=== PATIENT | female | born 1955 ===

== ENCOUNTER 2023-05-26 06:30 | Day surgery (SDC) | payer MEDICARE, SELFPAY ==
[2023-05-26 07:15] VITALS: BP 141/69; PULSE 88; RESP 18; TEMP 36.5; O2SAT 98
--- NOTE | 2023-05-26 07:15 | W.ANESPRE ---
General Info Date of Service Date Performed: 05/26/23 Height: 5 ft 3 in Weight: 58.967 kg Body Mass Index (BMI): 23.0 Surgical Procedure: Operation Date: 05/26/23 07:40 Proposed Procedure Side Surgeon p Cataract Extraction with IOL Implant Left Jeffry Lynn MD Meds Allergies and Home Medications Allergies Allergy/AdvReac Type Severity Reaction Status Date / Time atorvastatin Allergy Intermediate hair falls Verified 05/26/23 07:05 out metformin AdvReac Intermediate Diarrhea Verified 05/26/23 07:05 seasonal allergies Allergy Unknown Uncoded 05/26/23 07:05 Home Medication Medication Instructions Recorded albuterol sulfate 90 mcg/actuation 2 inh inhalation Q6H PRN 05/23/23 aerosol inhaler aspirin 81 mg chewable tablet 81 mg PO DAILY 05/23/23 budesonide 3 mg 3 mg PO DAILY 05/23/23 capsule,delayed,extended release budesonide-formoterol HFA 160 2 inh inhalation BID 05/23/23 mcg-4.5 mcg/actuation aerosol inhaler (Breyna) cholecalciferol (vitamin D3) 10 10 mcg PO DAILY 05/23/23 mcg (400 unit) capsule (Vitamin D3) glimepiride 2 mg tablet 2 mg PO DAILY 05/23/23 lisinopril 10 mg tablet 10 mg PO DAILY 05/23/23 loperamide 2 mg tablet 2 mg PO Q6H PRN 05/23/23 (Anti-Diarrheal (loperamide)) multivitamin (One Daily 1 tab PO DAILY 05/23/23 Multivitamin tablet) rosuvastatin 5 mg tablet 5 mg PO DAILY 05/23/23 semaglutide 3 mg tablet (Rybelsus) 3 mg PO DAILY 05/23/23 Current Visit Medications: Current Medications Generic Name Dose Route Start Last Admin Trade Name Freq PRN Reason Stop Dose Admin Acetaminophen 1,000 mg 05/26/23 06:00 Acetaminophen 500 Mg Tab PO 06/25/23 05:59 Q4H PRN PRN Balanced Salt Solution 500 ml 05/26/23 06:00 Balanced Salt Soln.-Plus 500 Ml Bag OP 06/25/23 05:59 DIRECTED [facility] Miscellaneous Medication 0 ml 05/26/23 06:00 Prednisolone 1%, Moxifloxacin 0.5%, Bromfenac 0.09% 5ml Btl OS 06/25/23 05:59 DIRECTED [facility] Miscellaneous Medication 0 ml 05/26/23 06:00 05/26/23 07:13 Tropicam./Phenyleph. (1/2.5%) 10 Ml Btl OS 06/25/23 05:59 1 drp DIRECTED [facility] Administration Tetracaine HCl 0 ml 05/26/23 06:00 Tetracaine 0.5% 4 Ml Btl OS 06/25/23 05:59 DIRECTED [facility] PFSH Active Problems Active Problems: Problem Status Onset Code Cortical age-related cataract, left eye H25.012 Nuclear age-related cataract, left eye H25.12 Medical History Medical History (Updated 05/25/23 @ 11:03 by Bridger Cruz) Mild atherosclerosis of left carotid artery Per pt. states she has never heard that she had this . Rhinitis Vertigo Hyperlipidemia Celiac disease Anxiety and depression Osteoarthritis Hypertension Diabetes COPD (chronic obstructive pulmonary disease) Diarrhea Collagenous colitis Smoker Bronchitis Atopic dermatitis Left hand pain Skin lesion of back Neoplasm of uncertain behavior Seborrheic keratoses inflamed seborrheic keratosis Angioma Surgical History Surgical History History of tubal ligation History of endoscopy History of colonoscopy History of biopsy right forearm Tobacco Smoking/Tobacco Use Status: Current every day Tobacco Type: cigarettes Alcohol Alcohol Intake: never Substance Use Substance use: Never Substance use type: does not use Vital Signs and Lab Results Point of Care Results Point of Care Results: Finger Stick Blood Glucose 171 05/26/23 06:59 Lab Results Blood Type / Crossmatch: No Data to Display Complete Blood Count: No Data to Display Complete Metabolic Panel: No Data to Display Liver Function Panel: No Data to Display Coagulation Panel: No Data to Display Cardiac Panel: No Data to Display Arterial Blood Gas: No Data to Display Venous Blood Gas: No Data to Display Pancreas Panel: No Data to Display Thyroid Panel: No Data to Display Infectious Disease: No Data to Display Blood Cultures: No Data to Display Toxicology Panel: No Data to Display Anesthesia Assessment and Plan Anesthesia History Personal History: No History of Anesthesia Complications Family History: No Family History of Anesthesia Complications Exercise Tolerance Exercise Tolerance: Metabolic Equivalents>4 Pertinent Negatives Pertinent Negatives: No Symptoms of GERD Cardiac & Pulmonary Exam Cardiac Exam: Normal S1/S2 Heart Sounds Pulmonary Exam: Clear Bilateral Breath Sounds Implantable Cardiac Device Does patient have a Pacemaker or an ICD?: No Airway Exam Known Difficult Airway: No Mallampati Class: 2 Mouth Opening: Normal (> 3cm) Thyromental Distance: Greater than 3 cm Neck Range of Motion: Full ROM Neck Circumference: Normal Teeth Condition: Normal Dentition ASA Classification ASA Score: ASA 3 Emergency Case?: No NPO Status NPO Status: NPO Clears >2 hours, Solids >8 hours Anesthesia Plan Resuscitation Status: Full Code Anesthesia Technique: MAC Anesthesia Airway Planned: Natural Airway Monitors Used: Standard Monitors
[2023-05-26 07:16] VITALS: BMI 23.0
[2023-05-26] MEDS: Lidocaine 1% Pres-Free 5 ML VIAL (07:44)
[2023-05-26] MEDS: Trypan Blue 0.06% 0.5 ML SYR (07:48)
[2023-05-26] MEDS: Povidone-Iodine Ophth 30 ML BTL (07:48)
[2023-05-26] MEDS: Balanced Salt Soln.-PLUS 500 ML BAG OP (07:49)
[2023-05-26] MEDS: Duovisc Viscoelastic System EACH 1 EACH (07:49)
[2023-05-26] MEDS: Tetracaine 0.5% 4 ML BTL OS (07:50)
[2023-05-26 08:07] VITALS: BP 134/67; PULSE 75; RESP 16; TEMP 36.5; O2SAT 99
--- NOTE | 2023-05-26 08:07 | W.PM.DSUDISC ---
Date of service: 05/26/23 Time of Service: 08:07 Discharge Plan Disposition Patient Disposition: Home Discharge Details Attending Provider: Jeffry Lynn Primary Care Provider: Bianca Abreu Home Meds and New Rx's Prescriptions: No Action budesonide 3 mg capsule,delayed,extend.release 3 mg PO DAILY Patient Comments: TAKE 1 CAPSULE BY MOUTH DAILY budesonide-formoterol [Breyna] 160-4.5 mcg/actuation HFA aerosol inhaler 2 inh inhalation BID Patient Comments: 05/26/23 pt reports doesnt use as to expensive Lula CHILDS multivitamin [One Daily Multivitamin] Tablet 1 tab PO DAILY loperamide [Anti-Diarrheal (loperamide)] 2 mg tablet 2 mg PO Q6H PRN glimepiride 2 mg tablet 2 mg PO DAILY albuterol sulfate 90 mcg/actuation HFA aerosol inhaler 2 inh INHALATION Q6H PRN rosuvastatin 5 mg tablet 5 mg PO DAILY Patient Comments: TAKE 1 TABLET BY MOUTH DAILY lisinopril 10 mg tablet 10 mg PO DAILY Patient Comments: TAKE 1 TABLET BY MOUTH DAILY aspirin 81 mg tablet,chewable 81 mg PO DAILY cholecalciferol (vitamin D3) [Vitamin D3] 10 mcg (400 unit) capsule 10 mcg PO DAILY Rybelsus 3 mg tablet 3 mg PO DAILY Patient Comments: TAKE 1 TABLET BY MOUTH DAILY Discharge Instructions Stand Alone Forms: DSU Post-Op CataractElana (DSU) Discharge Orders Discharge Orders: Discharge Order (Routine); Ordered 05/26/23 Ordered By: Jeffry Lynn DS: Diagnosis Discharge Diagnosis (1) Cortical age-related cataract, left eye: Status: Resolved (2) Nuclear age-related cataract, left eye: Status: Resolved
--- NOTE | 2023-05-26 08:08 | ROE_ITS ---
Date of service: 05/26/23 Time of Service: 08:08 Operative Note Operative Note DATE OF PROCEDURE: 05/26/23 PRE-OP DIAGNOSIS: Dense nuclear/cortical cataract, left eye POST-OP DIAGNOSIS: same PROCEDURE: Cataract extraction using phacoemulsification with intraocular lens implant, left eye SURGEON: Jeffry Lynn ANESTHESIA TYPE: Local By Surgeon and MAC Refer to Anesthesia Record PATHOLOGY: none sent COMPLICATIONS: None Patient was transported to: same day Patient's condition: stable Implants: Chad Clareon [id number] Indications: Progressive decreased vision due to cataract, left eye Procedure Description: CATARACT SURGERY OPERATIVE REPORT PREOPERATIVE DIAGNOSIS: Dense nuclear/cortical cataract, left eye POSTOPERATIVE DIAGNOSIS: Same OPERATION: Cataract extraction using phacoemulsification with posterior chamber intraocular lens implant, left eye. IOL: IOL Salesperson Driver/Model: Chad Clareon [id number] IOL Power: + 20.5 diopters IOL Serial Number: [id number] Optic Diameter: 6.0mm Haptic/Overall Diameter: 13.0mm PHACO INFO: ChadInSync Softwareurion Vision System with OZil and Active Fluidics Cumulative Dispersed Energy (CDE): 15.82 seconds SURGEON: Jeffry Lynn MD, BRODERICK ANESTHESIA: Monitored Anesthesia Care (MAC), with local sub-tenon's anesthetic infiltration COMPLICATIONS: None SPECIMENS: None INDICATIONS FOR PROCEDURE: The patient is a 68-year-old lady with history of diminished visual acuity in her left eye secondary to the development of significant nuclear/cortical cataract. She is significantly symptomatic that she desires cataract surgery and attempt to improve and maximize her vision. See office notes for detailed information. PROCEDURE: The correct surgical eye was identified and marked as the left eye and the pupil was dilated in the preoperative area using mydriatics and cyc loplegics. The dilated pupil size was 4.5 mm. The patient elected to proceed without oral sedation. The patient was brought to the operating room where cardiopulmonary monitoring was instituted and surgical time-out was performed, confirming the correct operative eye and IOL power. Topical anesthesia was administered and ophthalmic povidone-iodine 5% was instilled into the conjunctival fornices. The shala-ocular area was prepped with Betadine 10% solution and draped in the usual sterile fashion for intraocular surgery, including an aperture drape. A Tegaderm transparent film dressing was cut in half and used to cover the lashes and lid margins. Care was taken to sequester the lashes and lid margins under the Tegaderm dressing. A lid speculum was placed between the lids of the operative eye and the Chad LuxOR Revalia operating microscope was maneuvered into position. The red reflex was noted to be absent due to dense nuclear and cortical cataract. Flavia scissors were then used to make a conjunctival buttonhole approximately 6mm posterior to the limbus in the inferonasal quadrant. Blunt dissection was carried out to expose bare sclera, and a blunt-tipped sub-tenon?s anesthesia cannula was introduced and passed posteriorly along the globe where non- preserved plain lidocaine was injected into posterior sub-Tenon?s space. A sideport knife was used to make a paracentesis port. VisionBlue was injected into the anterior chamber and allowed to sit for 30 seconds. Intraocular phenylephrine/lidocaine was injected into the anterior chamber. The anterior chamber was then filled with viscoelastic. Viscoat was used to Viscoat dilate the pupil, achieving a pupil size of approximately 5 mm. A keratome knife was used construct a two-plane clear corneal tunnel extending 2.0mm into clear cornea. A flap was raised on the anterior capsule and capsulorhexis forceps were used to complete a continuous curvilinear capsulorhexis of 5.0 mm. The capsule was noted to be quite thin. Balanced salt solution was then used to perform cortical cleaving hydrodissection and nuclear hydrodelineation until the lens could be freely rotated within the capsular bag. The lens nucleus was then disassembled and removed within the capsular bag and iris plane using phacoemulsification. Additional Viscoat was injected during phacoemulsification to protect the corneal endothelium. Residual cortical material was removed using the irrigation/aspiration handpiece. The posterior capsule was carefully polished to remove as much residual lens epithelial cells as safely possible. The capsular bag was then inflated and the anterior chamber deepened with viscoelastic. The lens implant described above was inserted into the capsular bag using the Chad Autonome Injector. A Kuglen hook was used to dial the IOL into position. Residual viscoelastic was then removed first from posterior to the IOL, then from the anterior chamber using the I/A handpiece. The lens implant was noted to center nicely within the capsular bag. The incisions were stromally hydrated, and the anterior chamber was reformed using BSS. Then 0.5cc of moxifloxacin 1.0mg/ml were injected into the capsular bag and anterior chamber. The incisions were checked with a Weck spear and found to be secure. Several drops of ophthalmic povidone-iodine 5% were then applied to the eye followed by two drops of combination steroid/NSAID/antibiotic solution. The drapes were removed and a clear plastic protective eye shield was placed over the eye. The patient was then returned to Same Day Surgery in stable condition.
--- NOTE | 2023-05-26 08:12 | W.ANESPOSTOP ---
Postoperative Evaluation Date, Time and Location Date Performed: 05/26/23 Time Performed: 08:12 Patient Location: Day Surgery Unit Vital Signs Most Recent Imported Vital Signs: Most Recent Vital Signs Temp Pulse Resp BP Pulse Ox 36.5 C 88 18 141/69 H 98 05/26/23 07:15 05/26/23 07:15 05/26/23 07:15 05/26/23 07:15 05/26/23 07:15 Pain Score Most Recent Pain Score: Most Recent Pain Score Pain Level 0 05/26/23 07:15 Assessment Mental Status: Awake (Alert & Oriented to Patient Baseline) Airway and Respiratory Function: Patent airway with normal (patient baseline) respiratory exam Cardiovascular Function: Hemodynamically Stable Hydration Status: Adequately Hydrated Nausea & Vomiting: No Nausea or Vomiting Pain: Pt. Denies Any Pain Peripheral Nerve Block: Patient did not receive a nerve block
== END 2023-05-26 08:33 | disposition home or self-care (01) ==
LOC: SUR 09:48
PROVIDERS: PCP Family Medicine; Visit Provider Ophthalmology
PROC: (CPT 66984; principal; 2023-05-26 07:30)
DX: H25.012 Cortical age-related cataract, left eye (principal); H25.12 Age-related nuclear cataract, left eye
CPT/HCPCS: 66984; 00123; V2632; J2003

== ENCOUNTER 2023-06-09 06:07 | Day surgery (SDC) | payer MEDICARE, SELFPAY ==
[2023-06-09 06:30] VITALS: BP 106/61; PULSE 80; RESP 16; TEMP 36.4; O2SAT 98
--- NOTE | 2023-06-09 07:08 | W.PREOPHP ---
Assessment and Plan Assessment and plan (1) Cortical age-related cataract, right eye: Status: Acute Assessment and plan: Assessment: Visually significant cataract of the right eye. Plan: Cataract extraction with lens implantation of the right eye. (2) Nuclear age-related cataract, right eye: Status: Acute Assessment and plan: Assessment: Visually significant cataract of the right eye. Plan: Cataract extraction with lens implantation of the right eye. History of Present Illness History of Present Illness Chief Complaint: Progressive decreased vision, right eye Narrative: The patient is a 67-year-old lady with history of progressive decreased vision in both eyes at both distance and near. She notes significant difficulty with glare. On examination she was noted to have bilateral nuclear/cortical cataract and underwent cataract surgery in the left eye on 05/26/2023. She is doing well postoperatively. And she now presents for cataract surgery of the right eye. Review of Systems All systems reviewed & are unremarkable except as noted in HPI and below PFSH All Active Problems Cortical age-related cataract, right eye (Acute) Nuclear age-related cataract, right eye (Acute) Medical History Mild atherosclerosis of left carotid artery Per pt. states she has never heard that she had this . Rhinitis Vertigo Hyperlipidemia Celiac disease Anxiety and depression Osteoarthritis Hypertension Diabetes COPD (chronic obstructive pulmonary disease) Diarrhea Collagenous colitis Smoker Bronchitis Atopic dermatitis Left hand pain Skin lesion of back Neoplasm of uncertain behavior Seborrheic keratoses inflamed seborrheic keratosis Angioma Surgical History History of tubal ligation History of endoscopy History of colonoscopy History of biopsy right forearm Family History Other Cancer Diabetes Heart disease Social History Smoking/Tobacco Use Status: Current every day Tobacco Type: cigarettes Years smoked: 29 Tobacco: How many years used: 29 Smoking risk assessment performed?: Yes Alcohol Intake: never Drug use: Never Substance use type: does not use Housing: house Do you feel safe at home: Yes Do you feel safe in your relationship?: Yes Meds Allergies and Home Medications Allergies Allergy/AdvReac Type Severity Reaction Status Date / Time atorvastatin Allergy Intermediate hair falls Verified 06/09/23 06:35 out metformin AdvReac Intermediate Diarrhea Verified 06/09/23 06:35 seasonal allergies Allergy Unknown Uncoded 06/09/23 06:35 Home Medications Medication Instructions Recorded Confirmed Type albuterol sulfate 90 mcg/actuation 2 inh inhalation Q6H PRN 05/23/23 06/09/23 History aerosol inhaler aspirin 81 mg chewable tablet 81 mg PO DAILY 05/23/23 06/09/23 History budesonide 3 mg 3 mg PO DAILY 05/23/23 06/09/23 History capsule,delayed,extended release budesonide-formoterol HFA 160 2 inh inhalation BID 05/23/23 06/09/23 History mcg-4.5 mcg/actuation aerosol inhaler (Breyna) cholecalciferol (vitamin D3) 10 10 mcg PO DAILY 05/23/23 06/09/23 History mcg (400 unit) capsule (Vitamin D3) glimepiride 2 mg tablet 2 mg PO DAILY 05/23/23 06/09/23 History lisinopril 10 mg tablet 10 mg PO DAILY 05/23/23 06/09/23 History loperamide 2 mg tablet 2 mg PO Q6H PRN 05/23/23 06/09/23 History (Anti-Diarrheal (loperamide)) multivitamin (One Daily 1 tab PO DAILY 05/23/23 06/09/23 History Multivitamin tablet) rosuvastatin 5 mg tablet 5 mg PO DAILY 05/23/23 06/09/23 History semaglutide 3 mg tablet (Rybelsus) 3 mg PO DAILY 05/23/23 06/09/23 History Exam Eyes Other: Most recent ocular examination is significant for corrected visual acuity of 20/40 in each eye. Extract motility is normal. Intraocular pressure is 17 OD, 22 OS. Slit-lamp examination shows moderate nuclear cataract with mild cortical cataract in the right eye. In the left eye there is a well-positioned PCIOL with clear posterior capsule. Endothelial changes are noted in both corneas. Funduscopic examination shows disc cupping of 0.4 OU with normal vessels, macula, peripheral retina and vitreous. Resp Auscultation: clear to auscultation bilaterally Cardio Rate: regular rate Rhythm: regular rhythm Results Last Vital Signs Temp 36.4 C L 06/09/23 06:30 Pulse 80 06/09/23 06:30 Resp 16 06/09/23 06:30 BP 106/61 06/09/23 06:30 Pulse Ox 98 06/09/23 06:30
--- NOTE | 2023-06-09 07:13 | ANES.PREOP_ITS ---
General Info Date of Service Date Performed: 06/09/23 Height: 5 ft 3 in Weight: 56.2 kg Body Mass Index (BMI): 21.9 Surgical Procedure: Operation Date: 06/09/23 07:40 Proposed Procedure Side Surgeon p Cataract Extraction with IOL Implant Right Jeffry Lynn MD Meds Allergies and Home Medications Allergies Allergy/AdvReac Type Severity Reaction Status Date / Time atorvastatin Allergy Intermediate hair falls Verified 06/09/23 06:35 out metformin AdvReac Intermediate Diarrhea Verified 06/09/23 06:35 seasonal allergies Allergy Unknown Uncoded 06/09/23 06:35 Home Medication Medication Instructions Recorded albuterol sulfate 90 mcg/actuation 2 inh inhalation Q6H PRN 05/23/23 aerosol inhaler aspirin 81 mg chewable tablet 81 mg PO DAILY 05/23/23 budesonide 3 mg 3 mg PO DAILY 05/23/23 capsule,delayed,extended release budesonide-formoterol HFA 160 2 inh inhalation BID 05/23/23 mcg-4.5 mcg/actuation aerosol inhaler (Breyna) cholecalciferol (vitamin D3) 10 10 mcg PO DAILY 05/23/23 mcg (400 unit) capsule (Vitamin D3) glimepiride 2 mg tablet 2 mg PO DAILY 05/23/23 lisinopril 10 mg tablet 10 mg PO DAILY 05/23/23 loperamide 2 mg tablet 2 mg PO Q6H PRN 05/23/23 (Anti-Diarrheal (loperamide)) multivitamin (One Daily 1 tab PO DAILY 05/23/23 Multivitamin tablet) rosuvastatin 5 mg tablet 5 mg PO DAILY 05/23/23 semaglutide 3 mg tablet (Rybelsus) 3 mg PO DAILY 05/23/23 Current Visit Medications: Current Medications Generic Name Dose Route Start Last Admin Trade Name Freq PRN Reason Stop Dose Admin Acetaminophen 1,000 mg 06/09/23 06:00 Acetaminophen 500 Mg Tab PO 07/09/23 05:59 Q4H PRN PRN Balanced Salt Solution 500 ml 06/09/23 06:00 Balanced Salt Soln.-Plus 500 Ml Bag OP 07/09/23 05:59 DIRECTED [facility] Miscellaneous Medication 0 ml 06/09/23 06:00 Prednisolone 1%, Moxifloxacin 0.5%, Bromfenac 0.09% 5ml Btl OD 07/09/23 05:59 DIRECTED [facility] Miscellaneous Medication 0 ml 06/09/23 06:00 06/09/23 06:50 Tropicam./Phenyleph. (1/2.5%) 10 Ml Btl OD 07/09/23 05:59 1 drp DIRECTED [facility] Administration Tetracaine HCl 0 ml 06/09/23 06:00 Tetracaine 0.5% 4 Ml Btl OD 07/09/23 05:59 DIRECTED [facility] PFSH Active Problems Active Problems: Problem Status Onset Code Cortical age-related cataract, right eye H25.011 Nuclear age-related cataract, right eye H25.11 Cortical age-related cataract, left eye H25.012 Nuclear age-related cataract, left eye H25.12 Medical History Medical History Mild atherosclerosis of left carotid artery Per pt. states she has never heard that she had this . Rhinitis Vertigo Hyperlipidemia Celiac disease Anxiety and depression Osteoarthritis Hypertension Diabetes COPD (chronic obstructive pulmonary disease) Diarrhea Collagenous colitis Smoker Bronchitis Atopic dermatitis Left hand pain Skin lesion of back Neoplasm of uncertain behavior Seborrheic keratoses inflamed seborrheic keratosis Angioma Surgical History Surgical History History of tubal ligation History of endoscopy History of colonoscopy History of biopsy right forearm Tobacco Smoking/Tobacco Use Status: Current every day Tobacco Type: cigarettes Smoking cigarettes per day: 10 Years smoked: 29 Alcohol Alcohol Intake: never Substance Use Substance use: Never Substance use type: does not use Vital Signs and Lab Results Vital Signs Most Recent Vital Signs in EMR: Most Recent Vital Signs Temp Pulse Resp BP Pulse Ox 36.4 C L 80 16 106/61 98 06/09/23 06:30 06/09/23 06:30 06/09/23 06:30 06/09/23 06:30 06/09/23 06:30 Lab Results Blood Type / Crossmatch: No Data to Display Complete Blood Count: No Data to Display Complete Metabolic Panel: No Data to Display Liver Function Panel: No Data to Display Coagulation Panel: No Data to Display Cardiac Panel: No Data to Display Arterial Blood Gas: No Data to Display Venous Blood Gas: No Data to Display Pancreas Panel: No Data to Display Thyroid Panel: No Data to Display Infectious Disease: No Data to Display Blood Cultures: No Data to Display Toxicology Panel: No Data to Display Anesthesia Assessment and Plan Anesthesia History Personal History: No History of Anesthesia Complications Family History: No Family History of Anesthesia Complications Exercise Tolerance Exercise Tolerance: Metabolic Equivalents>4 Pertinent Negatives Pertinent Negatives: No Symptoms of GERD Cardiac & Pulmonary Exam Cardiac Exam: Normal S1/S2 Heart Sounds Pulmonary Exam: Clear Bilateral Breath Sounds Implantable Cardiac Device Does patient have a Pacemaker or an ICD?: No Airway Exam Known Difficult Airway: No Mallampati Class: 2 Mouth Opening: Normal (> 3cm) Thyromental Distance: Greater than 3 cm Neck Range of Motion: Full ROM Neck Circumference: Normal Teeth Condition: Removable Dentures/Plates Upper and Removable Dentures/Plates Lower ASA Classification ASA Score: ASA 3 Emergency Case?: No NPO Status NPO Status: NPO Clears >2 hours, Solids >8 hours Anesthesia Plan Resuscitation Status: Full Code Anesthesia Technique: MAC Anesthesia Airway Planned: Natural Airway Monitors Used: Standard Monitors
[2023-06-09 07:15] VITALS: BMI 21.9
[2023-06-09] MEDS: Povidone-Iodine Ophth 30 ML BTL (07:31)
[2023-06-09] MEDS: Tetracaine 0.5% 4 ML BTL OD (07:32)
[2023-06-09] MEDS: Balanced Salt Soln.-PLUS 500 ML BAG OP (07:39)
[2023-06-09] MEDS: Lidocaine 1% Pres-Free 5 ML VIAL (07:40)
[2023-06-09] MEDS: Trypan Blue 0.06% 0.5 ML SYR (07:40)
[2023-06-09] MEDS: Duovisc Viscoelastic System EACH 1 EACH (07:41)
[2023-06-09 08:07] VITALS: BP 121/51; PULSE 66; RESP 16; TEMP 36.2; O2SAT 99
--- NOTE | 2023-06-09 08:07 | ROE_ITS ---
Date of service: 06/09/23 Time of Service: 08:08 Operative Note Operative Note DATE OF PROCEDURE: 06/09/23 PRE-OP DIAGNOSIS: Nuclear/cortical cataract, right eye POST-OP DIAGNOSIS: same PROCEDURE: Cataract extraction using phacoemulsification with intraocular lens implant, right eye SURGEON: Jeffry Lynn ANESTHESIA TYPE: Local By Surgeon and MAC Refer to Anesthesia Record ESTIMATED BLOOD LOSS: 0 PATHOLOGY: none sent COMPLICATIONS: None Patient was transported to: same day Patient's condition: stable Implants: Chad Clareon [id number] Indications: Progressive decreased vision due to cataract, right eye Procedure Description: CATARACT SURGERY OPERATIVE REPORT PREOPERATIVE DIAGNOSIS: Nuclear/cortical cataract, right eye POSTOPERATIVE DIAGNOSIS: Same OPERATION: Cataract extraction using phacoemulsification with posterior chamber intraocular lens implant, right eye. IOL: IOL Torch Burner/Model: Chad Clareon [id number] IOL Power: + 20.5 diopters IOL Serial Number: [id number] Optic Diameter: 6.0mm Haptic/Overall Diameter: 13.0mm PHACO INFO: [employer] Vision System with OZil and Active Fluidics Cumulative Dispersed Energy (CDE): 15.68 seconds SURGEON: Jeffry Lynn MD, BRODERICK ANESTHESIA: Monitored Anesthesia Care (MAC), with local sub-tenon's anesthetic infiltration COMPLICATIONS: None SPECIMENS: None INDICATIONS FOR PROCEDURE: The patient is a 68-year-old lady with history of diminished visual acuity in both eyes secondary to the development of bilateral nuclear/cortical cataract. She has already undergone cataract surgery in the left eye and is doing well postoperatively. She now presents for cataract surgery in the right eye. See office notes for detailed information. PROCEDURE: The correct surgical eye was identified and marked as the right eye and the pupil was dilated in the preoperative area using mydriatics and cycloplegics. The dilated pupil size was 4.5 mm. The patient elected to proceed without oral sedation. The patient was brought to the operating room where cardiopulmonary monitoring was instituted and surgical time-out was performed, confirming the correct operative eye and IOL power. Topical anesthesia was administered and ophthalmic povidone-iodine 5% was instilled into the conjunctival fornices. The shala-ocular area was prepped with Betadine 10% solution and draped in the usual sterile fashion for intraocular surgery, including an aperture drape. A Tegaderm transparent film dressing was cut in half and used to cover the lashes and lid margins. Care was taken to sequester the lashes and lid margins under the Tegaderm dressing. A lid speculum was placed between the lids of the operative eye and the Sakshi-Maryjane operating microscope was maneuvered into position. Flavia scissors were then used to make a conjunctival buttonhole approximately 6mm posterior to the limbus in the inferonasal quadrant. Blunt dissection was carried out to expose bare sclera, and a blunt-tipped sub-tenon?s anesthesia cannula was introduced and passed posteriorly along the globe where non- preserved plain lidocaine was injected into posterior sub-Tenon?s space. A sideport knife was used to make a paracentesis port. VisionBlue was injected into the anterior chamber and allowed to sit for 20 seconds. Intraocular phenylephrine/lidocaine was injected into the anterior chamber. The anterior chamber was then filled with viscoelastic. An additional 0.5 mm of Viscoat dilation was achieved. A keratome knife was used to construct a two--plane clear corneal tunnel extending 2.0mm into clear cornea. A flap was raised on the anterior capsule and capsulorhexis forceps were used to complete a continuous curvilinear capsulorhexis of 4.5 mm. Balanced salt solution was then used to perform cortical cleaving hydrodissection and nuclear hydrodelineation until the lens could be freely rotated within the capsular bag. The lens nucleus was then disassembled and removed within the capsular bag and iris plane using phacoemulsification. Residual cortical material was removed using the I/A handpiece. The posterior capsule was carefully polished to remove as much residual lens epithelial cells as safely possible. The capsular bag was then inflated and the anterior chamber deepened with cohesive viscoelastic. The lens implant described above was inserted into the capsular bag using the Chad Autonome Injector. A Kuglen hook was used to dial the IOL into position. Residual viscoelastic was then removed first from posterior to the IOL, then from the anterior chamber using the I/A handpiece. The lens implant was noted to center nicely within the capsular bag. The incisions were stromally hydrated, and the anterior chamber was reformed using BSS. Then 0.5cc of moxifloxacin 1.0mg/ml were injected into the capsular bag and anterior chamber. The incisions were checked with a Weck spear and found to be secure. Several drops of ophthalmic povidone-iodine 5% were then applied to the eye followed by two drops of combination steroid/NSAID/antibiotic solution. The drapes were removed and a clear plastic protective eye shield was placed over the eye. The patient was then returned to [facility] Surgery in stable condition.
--- NOTE | 2023-06-09 08:07 | W.PM.DSUDISC ---
Date of service: 06/09/23 Time of Service: 08:07 Discharge Plan Disposition Patient Disposition: Home Discharge Details Attending Provider: Jeffry Lynn Primary Care Provider: Bianca Abreu Home Meds and New Rx's Prescriptions: No Action budesonide 3 mg capsule,delayed,extend.release 3 mg PO DAILY Patient Comments: TAKE 1 CAPSULE BY MOUTH DAILY budesonide-formoterol [Breyna] 160-4.5 mcg/actuation HFA aerosol inhaler 2 inh inhalation BID Hold Instructions: Pt Stopped/Never Started Patient Comments: 05/26/23 pt reports doesnt use as to expensive Lula RN multivitamin [One Daily Multivitamin] Tablet 1 tab PO DAILY loperamide [Anti-Diarrheal (loperamide)] 2 mg tablet 2 mg PO Q6H PRN glimepiride 2 mg tablet 2 mg PO DAILY albuterol sulfate 90 mcg/actuation HFA aerosol inhaler 2 inh INHALATION Q6H PRN rosuvastatin 5 mg tablet 5 mg PO DAILY Patient Comments: TAKE 1 TABLET BY MOUTH DAILY lisinopril 10 mg tablet 10 mg PO DAILY Patient Comments: TAKE 1 TABLET BY MOUTH DAILY aspirin 81 mg tablet,chewable 81 mg PO DAILY cholecalciferol (vitamin D3) [Vitamin D3] 10 mcg (400 unit) capsule 10 mcg PO DAILY Rybelsus 3 mg tablet 3 mg PO DAILY Patient Comments: TAKE 1 TABLET BY MOUTH DAILY Discharge Instructions Stand Alone Forms: Post-op Block Cataract, [facility] Post-Op Cataract, Elana Soto (DSU) Discharge Orders Discharge Orders: Discharge Order (Routine); Ordered 06/09/23 Ordered By: Jeffry Lynn DS: Diagnosis Discharge Diagnosis (1) Cortical age-related cataract, right eye: Status: Resolved (2) Nuclear age-related cataract, right eye: Status: Resolved
--- NOTE | 2023-06-09 08:29 | W.ANESPOSTOP ---
Postoperative Evaluation Date, Time and Location Date Performed: 06/09/23 Time Performed: 08:08 Patient Location: Day Surgery Unit Vital Signs Most Recent Imported Vital Signs: Most Recent Vital Signs Temp Pulse Resp BP Pulse Ox 36.2 C L 66 16 121/51 L 99 06/09/23 08:07 06/09/23 08:07 06/09/23 08:07 06/09/23 08:07 06/09/23 08:07 Pain Score Most Recent Pain Score: Most Recent Pain Score Pain Level 0 06/09/23 08:07 Assessment Mental Status: Awake (Alert & Oriented to Patient Baseline) Airway and Respiratory Function: Patent airway with normal (patient baseline) respiratory exam Cardiovascular Function: Hemodynamically Stable Hydration Status: Adequately Hydrated Nausea & Vomiting: No Nausea or Vomiting Pain: Pt. Denies Any Pain Peripheral Nerve Block: Patient did not receive a nerve block
== END 2023-06-09 08:25 | disposition home or self-care (01) ==
LOC: SUR 06:08
PROVIDERS: PCP Family Medicine; Visit Provider Ophthalmology
PROC: (CPT 66984; principal; 2023-06-09 07:30)
DX: H25.011 Cortical age-related cataract, right eye (principal); H25.11 Age-related nuclear cataract, right eye; Z98.42 Cataract extraction status, left eye
CPT/HCPCS: 66984; 00123; V2632; J2003